=== PATIENT | male | born 1960 | race Caucasian/White ===

== ENCOUNTER 2019-01-09 07:19 | Emergency (ER) | payer BC, OTHER ==
[2019-01-09 07:48] VITALS: BP 148/95
--- NOTE | 2019-01-09 08:03 | UC ---
Skin Complaint HPI - HPI Summary HPI Summary: 58-year-old male who had some mild discomfort in his left flank area one week ago which then proceeded to break out in a herpetic rash. He complains more of itching however does have some sharp shooting pain as well. - History of Current Complaint Chief Complaint: UCSkin Time Seen by Provider: 01/09/19 08:03 Stated Complaint: LEFT SIDE SKIN COMPLAINT Hx Obtained From: Patient Onset/Duration: Gradual Onset Skin Exposure Onset/Duration: Days Ago Timing: Constant Onset Severity: Mild Current Severity: Moderate Pain Intensity: 5 Location: Other Character: Pruritus, Redness, Raised Aggravating Factor(s): Touch Alleviating Factor(s): Other - Patient use some calamine lotion today. Associated Signs & Symptoms: Positive: Rash - Allergy/Home Medications Allergies/Adverse Reactions: Allergies Allergy/AdvReac Type Severity Reaction Status Date / Time No Known Allergies Allergy Verified 01/09/19 07:36 Home Medications: Home Medications Glucosamine Sulfate Dipot Chlr [Gnp Glucosamine Maximum S] 1,000 mg PO DAILY [History Confirmed 01/09/19] Vit D3/Folic Acid/B2/B6/B12 [Folgard] 1 tab PO DAILY 01/09/19 [History Confirmed 01/09/19] PMH/Surg Hx/FS Hx/Imm Hx Previously Healthy: Yes - Surgical History Surgical History: None - Family History Known Family History: Positive: Non-Contributory - Social History Occupation: Retired Alcohol Use: Occasionally Alcohol Amount: 1-2 times a week Substance Use Type: None Smoking Status (MU): Never Smoked Tobacco - Immunization History Most Recent Tetanus Shot: unknown Review of Systems All Other Systems Reviewed And Are Negative: Yes Skin: Positive: Rash - Herpetic rash which started breaking out one week ago which is now itchy and minimally painful. Is Patient Immunocompromised?: No Physical Exam Triage Information Reviewed: Yes Appearance: Well-Appearing, No Pain Distress, Well-Nourished Vital Signs: Initial Vital Signs Temp 98.1 F 01/09/19 07:40 Pulse 61 01/09/19 07:40 Resp 18 01/09/19 07:40 BP 148/95 01/09/19 07:40 Pulse Ox 98 01/09/19 07:40 Vital Signs Reviewed: Yes Musculoskeletal Exam: Normal Neurological Exam: Normal Psychological Exam: Normal Skin: Positive: Rashes - Patient has a shingles rash to his left mid back which comes around to his left side. No active drainage. There are some papules. No secondary skin infection. Course/Dx - Course Course Of Treatment: Patient is comfortable here and basically wanted some medication for itching. I advised to be can take Claritin daily and Benadryl as directed. We did discuss antiviral treatment and he would prefer to start that even though it's more than 72 hours. He has had some new were outbreaks therefore I'm going to treat him with valacyclovir. - Diagnoses Provider Diagnosis: Shingles Discharge ED - Sign-Out/Discharge Documenting (check all that apply): Patient Departure All imaging exams completed and their final reports reviewed: No Studies - Discharge Plan Condition: Fair Disposition: HOME Prescriptions: ValACYclovir (*) [Valtrex 1 GM(*)] 1 gm PO TID 7 Days #21 tab Patient Education Materials: Shingles (ED) Referrals: Vikki Tobar MD [Primary Care Provider] - Additional Instructions: Avoid scratching the area. May take Claritin one tablet daily, may take Benadryl 25-50 mg every 6 hours as needed or itching. May continue to use calamine lotion. Take Tylenol or Motrin for pain. Follow-up with your primary care provider if you develop fever, chills or worsening symptoms. Avoid any person who has not had chickenpox especially women. It is only the drainage from the rash that is contagious to other people. - Billing Disposition and Condition Condition: FAIR Disposition: Home
== END 2019-01-09 08:23 | disposition home or self-care (01) ==
LOC: UCCORT 07:19
DX: B02.9 Zoster without complications (principal)
CPT/HCPCS: 99202; G0463